=== PATIENT | male | born 1980 | race Caucasian/White ===

== ENCOUNTER 2020-09-04 10:55 | Emergency (ER) | payer OTHER ==
[~2020-09-04] VITALS: Ht 177.8 cm; Wt 129.3 kg
[2020-09-04] MEDS ORDERED: AUGMENTIN 875-1 EACH PO (11:38)
[2020-09-04] MEDS ORDERED: TYLENOL # 31 EA PO (11:39)
== END 2020-09-04 11:40 | disposition home or self-care (01) ==
LOC: ER 11:06
DX: H66.91 Otitis media, unspecified, right ear (principal); R50.9 Fever, unspecified; R68.84 Jaw pain
CPT/HCPCS: 99283